=== PATIENT | male | born 2000 | race Caucasian/White ===

== ENCOUNTER 2019-11-22 07:28 | Emergency (ER) | payer MEDICAID, OTHER ==
[~2019-11-22] VITALS: Ht 188 cm; Wt 72.7 kg
[2019-11-22 09:33] VITALS: BP 125/85
== END 2019-11-22 09:35 | disposition home or self-care (01) ==
LOC: ER 07:29
DX: L23.7 Allergic contact dermatitis due to plants, except food (principal)
CPT/HCPCS: 99281

== ENCOUNTER → 2020-03-26 | Emergency (ER) | payer OTHER | END | disposition left against medical advice (07) | LOC: ER 16:05 | DX: R07.0 Pain in throat (principal); Z53.21 Procedure and treatment not carried out due to patient leaving prior to being seen by health care provider ==

== ENCOUNTER 2020-05-23 21:42 | Emergency (ER) | payer MEDICAID, OTHER ==
[~2020-05-23] VITALS: Ht 185.4 cm; Wt 68.9 kg
[2020-05-23] MEDS ORDERED: LIDOcaine Viscous 15ml cup MM STA (23:40)
[2020-05-23] MEDS ORDERED: LIDOcaine 1% W/epiNEPHrine 1:200,000 10ml vial IJ ONE (23:45)
[2020-05-24] MEDS ORDERED: LIDO20SO16 MM (00:22)
[2020-05-24] MEDS ORDERED: AMOX-117 PO (00:24)
[2020-05-24 00:32] VITALS: BP 111/69
== END 2020-05-24 00:35 | disposition home or self-care (01) ==
LOC: ER 21:43
DX: K04.7 Periapical abscess without sinus (principal); Z79.899 Other long term (current) drug therapy
CPT/HCPCS: 41800; 99284

== ENCOUNTER 2021-07-16 14:08 | Emergency (ER) | payer MEDICAID ==
[~2021-07-16] VITALS: Ht 188 cm; Wt 70.5 kg
[~2021-07-16 14:08] MED LIST: LIDO20SO16 MM
[2021-07-16 14:15] VITALS: BP 106/71
== END 2021-07-16 14:22 ==
LOC: ER 14:09
DX: S20.312A Abrasion of left front wall of thorax, initial encounter (principal); S21.102A Unspecified open wound of left front wall of thorax without penetration into thoracic cavity, initial encounter; S27.898A Other injury of other specified intrathoracic organs, initial encounter; Z02.89 Encounter for other administrative examinations; Y35.839A Legal intervention involving a conducted energy device, unspecified person injured, initial encounter; Y93.89 Activity, other specified; Y92.89 Other specified places as the place of occurrence of the external cause; Y99.8 Other external cause status
CPT/HCPCS: 99283

== ENCOUNTER 2021-07-17 10:26 | Emergency (ER) | payer MEDICAID ==
[~2021-07-17] VITALS: Ht 188 cm; Wt 70.5 kg
[2021-07-17 10:29] VITALS: BP 123/86
== END 2021-07-17 10:58 | disposition home or self-care (01) ==
LOC: ER 10:27
DX: S02.2XXD Fracture of nasal bones, subsequent encounter for fracture with routine healing (principal); J34.89 Other specified disorders of nose and nasal sinuses; Z79.899 Other long term (current) drug therapy; X58.XXXD Exposure to other specified factors, subsequent encounter
CPT/HCPCS: 99281

== ENCOUNTER 2021-08-31 06:25 | Emergency (ER) | payer MEDICAID ==
[~2021-08-31] VITALS: Ht 188 cm; Wt 72.7 kg
[2021-08-31 06:48] VITALS: BP 111/53
== END 2021-08-31 07:55 | disposition home or self-care (01) ==
LOC: ER 06:25
DX: M54.50 Low back pain, unspecified (principal); Z79.899 Other long term (current) drug therapy
CPT/HCPCS: 99281

== ENCOUNTER 2022-06-03 18:57 | Emergency (ER) | payer MEDICAID | END 2022-06-03 20:31 | disposition left against medical advice (07) | LOC: ER 18:58 | DX: H92.09 Otalgia, unspecified ear (principal); Z53.21 Procedure and treatment not carried out due to patient leaving prior to being seen by health care provider ==

== ENCOUNTER 2022-06-04 21:49 | Emergency (ER) | payer MEDICAID ==
[~2022-06-04] VITALS: Ht 188 cm; Wt 80.0 kg
[2022-06-04 22:13] VITALS: BP 128/68
== END 2022-06-04 22:57 | disposition home or self-care (01) ==
LOC: ER 21:51
DX: H61.22 Impacted cerumen, left ear (principal)
CPT/HCPCS: 99281

== ENCOUNTER 2022-08-26 00:34 | Emergency (ER) | payer MEDICAID ==
[~2022-08-26] VITALS: Ht 188 cm; Wt 70.5 kg
[2022-08-26 00:34] VITALS: BP 104/75
[2022-08-26] MEDS ORDERED: amox tr/potassium clavulanate 875/125mg TAB PO ONE (00:45)
[2022-08-26] MEDS ORDERED: bacitracin 15gm ointment TP ONE (00:45)
[2022-08-26] MEDS ORDERED: LIDOcaine 1% W/epiNEPHrine 1:100,000 20ml vial IJ ONE (00:45)
[2022-08-26] MEDS ORDERED: TETanus/Pertussis (Acell)/Diphther VAC/PF (Tdap-Adult) 0.5ml syringe IMVAC ONE (00:45)
[2022-08-26] MEDS ORDERED: AMOX-117 PO ×2 (00:50→19:56)
[2022-08-26] MEDS ORDERED: ketorolac trometh. 30mg/ml inj. IM ONE (01:20)
--- NOTE | 2022-08-26 01:50 | NUR ---
PT CAME IN WITH DOG BITE TO RIGHT THIGH, 3 WOUNDS WERE IRRIGATED WITH COPIOUS AMOUNTS OF NS, AND SUTURED. 11 EXTERNAL SUTURES IN TOTAL WITH ONE INTERNAL SUTURE, BLEEDING CONTROLLED, AND DRESSING PLACED.
[2022-08-26] MEDS ORDERED: IBUP-1986 PO (19:56)
== END 2022-08-26 03:44 | disposition home or self-care (01) ==
LOC: ER 00:34
DX: S71.111A Laceration without foreign body, right thigh, initial encounter (principal); W54.0XXA Bitten by dog, initial encounter; Y93.89 Activity, other specified; Y92.89 Other specified places as the place of occurrence of the external cause; Y99.8 Other external cause status
CPT/HCPCS: 12002; 73552; 90471; 90715; 96372; 99284; J1885; J3490

== ENCOUNTER 2022-08-26 19:05 | Emergency (ER) | payer MEDICAID ==
[~2022-08-26] VITALS: Ht 188 cm; Wt 68.0 kg
[~2022-08-26 19:05] MED LIST changes: +AMOX-117 PO
[2022-08-26 19:34] VITALS: BP 122/89
[2022-08-26] MEDS ORDERED: ibuprofen tablet 400 MG TABLET PO ONE (19:40)
[2022-08-26] MEDS ORDERED: amox tr/potassium clavulanate 875/125mg TAB PO ONE (19:40)
[2022-08-26] MEDS ORDERED: IBUP-1986 PO (19:56)
[2022-08-26] MEDS ORDERED: AMOX-117 PO (19:56)
== END 2022-08-26 20:38 | disposition home or self-care (01) ==
LOC: ER 19:05
DX: S50.01XA Contusion of right elbow, initial encounter (principal); W54.0XXA Bitten by dog, initial encounter; Y93.89 Activity, other specified; Y92.89 Other specified places as the place of occurrence of the external cause; Y99.8 Other external cause status
CPT/HCPCS: 73080; 99284; A6446

== ENCOUNTER 2022-08-30 10:56 | Emergency (ER) | payer MEDICAID ==
[~2022-08-30] VITALS: Ht 188 cm; Wt 68.2 kg
[~2022-08-30 10:56] MED LIST changes: +IBUP-1986 PO
[2022-08-30 11:05] VITALS: BP 101/76
== END 2022-08-30 12:06 | disposition home or self-care (01) ==
LOC: ER 10:56
DX: S71.151D Open bite, right thigh, subsequent encounter (principal); Z79.899 Other long term (current) drug therapy; W54.0XXD Bitten by dog, subsequent encounter
CPT/HCPCS: 99281

== ENCOUNTER 2022-09-08 09:48 | Emergency (ER) | payer MEDICAID ==
[~2022-09-08] VITALS: Ht 190.5 cm; Wt 75.0 kg
[~2022-09-08 09:48] MED LIST changes: -AMOX-117 PO
[2022-09-08 09:50] VITALS: BP 105/51
--- NOTE | 2022-09-08 10:31 | NUR ---
SUTURES REMOVED BY DIELECTRIC TESTER.
== END 2022-09-08 10:31 | disposition home or self-care (01) ==
LOC: ER 09:48
DX: S71.111D Laceration without foreign body, right thigh, subsequent encounter (principal); Z79.899 Other long term (current) drug therapy; X58.XXXD Exposure to other specified factors, subsequent encounter
CPT/HCPCS: 99281